=== PATIENT | male | born 1990 | race Caucasian/White ===

== ENCOUNTER 2024-08-23 18:13 | Emergency (ER) | payer MEDICAID, OTHER ==
[~2024-08-23] VITALS: Ht 177.8 cm; Wt 77.0 kg
--- NOTE | 2024-08-23 18:59 | ED.PDOC ---
GI ASSESSMENT HPI Comments 34-year-old male presents with a chief complaint of abdominal pain x 1 week with associated dysuria and urinary frequency. Patient mentions that his pain is localized to his suprapubic region, non-radiating, describes as sharp, and rates his pain a 8/10. Patient mentions that he does not have any associated nausea, vomiting, or diarrhea. Patient reports that he is taking left over amoxicillin once/day. Patient reports he has associated low back pain. No other symptoms or modifying factors present at this time. Chief Complaint: Abdominal Pain Time Seen by MD: 18:44 Primary Care Provider: none Reviewed Notes: Medications, Allergies Allergies: Coded Allergies: NO KNOWN ALLERGIES (Unverified , 08/23/24) Home Meds Active Scripts Ibuprofen Micronized (Ibuprofen) 800 Mg Tab, 800 MG PO Q8HP PRN, #30 TAB prn pain Prov:FRAN GAMEZ MD 08/23/24 Phenazopyridine HCl (Phenazopyridine Hydrochlo) 200 Mg Tab, 200 MG PO TID PRN, #9 TAB prn urinary pain Prov:FRAN GAMEZ MD 08/23/24 Cephalexin Monohydrate (Cephalexin) 500 Mg Cap, 1 CAP PO QID for 10 Days, #40 CAP Prov:FRAN GAMEZ MD 08/23/24 Information Source: Patient Mode of Arrival: Ambulatory Timing: Days Duration: Since onset Prehospital treatment: None Quality: Aching Vomitus: None Stool: Normal Severity: Moderate Recent: None Recent Hx of: None Pain Location: Suprapubic Past Medical History PAST MEDICAL HISTORY: Denies Surgical History: Denies all surgeries Family History Family History: Reviewed,noncontributory to illness Social History Smoker: Non-Smoker Alcohol: Denies ETOH Use Drugs: Denies Drug Use Lives In: Home Constitutional: denies: chills, diaphoresis, fatigue, fever, malaise, sweats, weakness, others EENTM: denies: blurred vision, double vision, ear bleeding, ear discharge, ear drainage, ear pain, ear ringing, eye pain, eye redness, hearing loss, mouth pain, mouth swelling, nasal discharge, nose bleeding, nose congestion, nose pain, photophobia, tearing, throat pain, throat swelling, voice changes, others Respiratory: denies: cough, hemoptysis, orthopnea, SOB at rest, shortness of breath, SOB with excertion, stridor, wheezing, others Cardiovascular: denies: chest pain, dizzy spells, diaphoresis, Dyspnea on exertion, edema, irregular heart beat, left arm pain, lightheadedness, palpitations, PND, syncope, others Gastrointestinal: reports: abdominal pain; denies: abdomen distended, blood streaked bowels, constipated, diarrhea, dysphagia, difficulty swallowing, h ematemesis, melena, nausea, poor appetite, poor fluid intake, rectal bleeding, rectal pain, vomiting, others Genitourinary: reports: dysuria; denies: burning, flank pain, frequency, hematuria, incontinence, penile discharge, penile sore, pain, testicle pain, testicle swelling, urgency, others Neurological: denies: dizziness, fainting, headache, left sided numbness, left sided weakness, numbness, paresthesia, pre-existing deficit, right sided n umbness, right sided weakness, seizure, speech problems, tingling, tremors, weakness, others Musculoskeletal: denies: back pain, gout, joint pain, joint swelling, muscle pain, muscle stiffness, neck pain, others Allergic/Immunocompromised: denies: Difficulty Healing, Frequent Infections, Hives, Itching, others Hematologic/Lymphatic: denies: anemia, blood clots, easy bleeding, easy bruising, swollen glands, others Endocrine: denies: excessive hunger, excessive sweating, excessive thirst, excessive urination, flushing, intolerance to cold, intolerance to heat, unexplained weight gain, unexplained weight loss, others Psychiatric: denies: anxiety, bipolar disorder, depression, hopeless, panic disorder, schizophrenia, sleepless, suicidal, others All Other Systems: Reviewed and Negative Physical Exam General Appearance: No Apparent Distress, Normal HEENT: Normal ENT Inspection Neck: Full Range of Motion, Normal Inspection Respiratory: Lungs Clear, No Accessory Muscle Use, No Respiratory Distress, Normal Breath Sounds Cardiovascular: No Edema, No JVD, Regular Rate/Rhythm Breast Exam: Deferred Gastrointestinal: Soft, Suprapubic, Tenderness Genitalia: Deferred Pelvic: Deferred Rectal: Deferred Extremities: Normal inspection, Normal range of motion, No pedal edema Musculoskeletal : Apperance: Normal Neurologic: Alert, No Motor Deficits, Normal Affect, Normal Mood, No Sensory Deficits Cerebellar Function: NOT DONE Reflexes: NOT DONE Skin: Dry, Normal Color, Warm Lymphatic: NOT DONE Was a procedure done? Was a procedure done?: No GI differential Dx Differential Diagnosis: Gastroenteritis, Inflammatory BD, UTI, Urolithiasis, Diabetes/ DKA, Electrolyte Imbalance, Bacterial, Parasitic, Viral, Renal Failure, Mass X-Ray, Labs, Meds, VS Vital Signs Date Time Temp Pulse Resp B/P (MAP) Pulse Ox O2 Delivery O2 Flow Rate FiO2 08/23/24 19:55 97.7 79 16 108/78 (88) 97 97.7 08/23/24 18:25 97.9 78 16 111/73 (86) 97 Lab Test 08/23/24 18:32 Range/Units Urine Color Colorless Yellow Urine Clarity Clear Clear Urine pH 5.5 5.0-9.0 Urine Specific [place] 1.003 1.001-1.035 Urine Protein Negative Negative Urine Ketones Negative Negative Urine Blood Negative Negative /uL Urine Nitrite Negative Negative Urine Bilirubin Negative Negative Urine Urobilinogen Normal Negative mg/dL Urine Leukocyte Esterase Negative Negative /uL Urine RBC None seen 0 - 3 /hpf Urine WBC None seen 0 - 3 /hpf Urine Squamous Epithelial Cells None seen <5 /hpf Urine Bacteria None seen None Seen /hpf Urine Glucose Normal Normal mg/dL Current Medications Medications (Trade) Dose Ordered Sig/Mariam Route Start Time Stop Time Status Last Admin Ceftriaxone Sodium (Rocephin) 1,000 mg ONCE ONCE IM 08/23/24 19:00 08/23/24 19:01 DC 08/23/24 20:04 Phenazopyridine HCl (Pyridium Tablet) 200 mg ONCE ONCE PO 08/23/24 19:00 08/23/24 19:01 DC 08/23/24 20:04 Ibuprofen (Motrin Tablet) 800 mg ONCE ONCE PO 08/23/24 19:00 08/23/24 19:01 DC 08/23/24 20:04 X-Ray, Labs, Meds, VS Comment 34-year-old male with no significant past medical history complaining of dysuria, urinary frequency and low back pain. Vitals unremarkable Exam remarkable for suprapubic tenderness to palpation UA negative, however patient has been treating himself with oral antibiotics Patient treated with the following in the ED: Rocephin 1 g IM, Pyridium 200 mg p.o., ibuprofen 800 mg p.o. On re-evaluation, patient was well-appearing and asymptomatic. He appears stable for outpatient treatment and close follow-up with his primary physician. Patient advised to discontinue amoxicillin. Rx Keflex, Pyridium, ibuprofen Time of 1ST Reevaluation: 19:14 Reevaluation 1ST: Unchanged Time of 2ND Reevaluation: 20:00 Reevaluation 2ND: Improved Patient Education/Counseling: Diagnosis, Treatment, Prognosis Family Education/Counseling: No Family Present Departure 1 Departure Time of Disposition: 19:36 Impression: Primary Impression: UTI (urinary tract infection) Qualified Codes: N39.0 - Urinary tract infection, site not specified Disposition: HOME / SELF CARE / HOMELESS Condition: Stable Additional Instructions: Follow up with primary doctor in 1-2 days. e-Prescriptions Ibuprofen Micronized (Ibuprofen) 800 Mg Tab 800 MG PO Q8HP PRN, #30 TAB prn pain Prov: FRAN GAMEZ MD 08/23/24 Phenazopyridine HCl (Phenazopyridine Hydrochlo) 200 Mg Tab 200 MG PO TID PRN, #9 TAB prn urinary pain Prov: FRAN GAMEZ MD 08/23/24 Cephalexin Monohydrate (Cephalexin) 500 Mg Cap 1 CAP PO QID for 10 Days, #40 CAP Prov: FRAN GAMEZ MD 08/23/24 Discharged With: Self Critical Care Note Critical Care Time?: No Stability Stability form required: No I personally scribed for FRAN GAMEZ MD ([email or web address]) on 08/23/24 at 18:59. Electronically submitted by Néstor Blanca ([email or web address]). FRAN GAMEZ MD Aug 23, 2024 18:59
[2024-08-23 19:24] LABS: Urine Bacteria None Seen /hpf (None Seen); Urine WBC None Seen /hpf (0 - 3)
[2024-08-23 19:34] LABS: Urine Blood Negative /uL (Negative); Urine Clarity Clear (Clear); Urine Color Colorless (Yellow); Urine Protein, UAD Negative (Negative); Urine Specific Gravity 1.003 (1.001-1.035); Urine Urobilinogen Normal (Negative); Urine pH 5.5 (5.0-9.0)
[2024-08-23] MEDS ORDERED: IBUP-1455 PO (19:39)
[2024-08-23] MEDS ORDERED: PHEN-922 PO (19:39)
[2024-08-23] MEDS ORDERED: CEPH500C PO (19:39)
[2024-08-23] MEDS: IBUPROFEN 800 MG TAB PO ONE (20:04)
[2024-08-23] MEDS: PHENAZOPYRIDINE HCL 100 MG TAB PO ONE (20:04)
[2024-08-23] MEDS: cefTRIAXone SOD 1,000 MG VL IM ONE (20:04)
[2024-08-23 22:37] VITALS: BP 109/78; TEMP 97.8
[2024-08-23 22:40] VITALS: PULSE 75; RESP 16; O2SAT 96
== END 2024-08-23 22:46 | disposition home or self-care (01) ==
LOC: ER 18:13
DX: N39.0 Urinary tract infection, site not specified (principal)
CPT/HCPCS: 81001; 96372; 99283; J0696